=== PATIENT | male | born 1960 | race Caucasian/White ===

== ENCOUNTER 2017-03-31 11:04 | Day surgery (SDC) | payer OTHER ==
[~2017-03-31] VITALS: Ht 180.3 cm; Wt 81.7 kg
[2017-03-31] VITALS (9 sets, daily range): BP systolic 119–151; BP diastolic 75–101; PULSE 62–82; RESP 16–20; O2SAT 92–96
[~2017-03-31 11:04] MED LIST: ALBU8.5H2 INHALATION; Lactated Ringer's 1,000 ML IV ONE; METH10OR11 PO; ONDA8TAB7 PO
[2017-03-31] MEDS ORDERED: Lidocaine PF 2% 10 mL Inj MUC_MEMBRM ONE (11:10)
[2017-03-31] MEDS ORDERED: Lidocaine PF 2% 10 mL Inj MUC_MEMBRM PRN (11:10)
[2017-03-31] MEDS ORDERED: Lidocaine Topical 2% 30 mL Jelly TOPICAL ONE (11:10)
[2017-03-31] MEDS ORDERED: 0.9% Sodium Chloride 1,000 ML IV ONE (11:50)
[2017-03-31] MEDS ORDERED: fentaNYL-PF 50 mCg/mL 2 mL Inj ONE (12:04)
--- NOTE | 2017-03-31 13:26 | ENDO ---
[address] [address] ENDOSCOPY PROCEDURE PATIENT: SANJAY KRAFT : 1960 MR#: [id number] ADMIT: 03/31/2017 JOB ID: [id number] DATE OF SERVICE: 03/31/2017 PROCEDURE: Bronchoscopy. PERFORMED BY: Nica Ramirez M.D., Pulmonary Medicine. INDICATION: Left lung mass. DESCRIPTION OF PROCEDURE: Informed consent was obtained from the patient after risks and benefits of the procedure were discussed. The patient was asked to gargle lidocaine. Additional lidocaine was administered via atomizer. The scope was passed through the mouth. Epiglottis and trachea were both visualized. Additional lidocaine was administered here. Scope was passed past the cords into the trachea. Trachea and mariela were completely normal in appearance. A complete right-sided airway inspection was done and the airways were normal, patent without any mucosal abnormalities. On the left side, however, there was significant airway edema from the left upper lobe takeoff onward. The lingula, left upper lobe airways were patent but at the level of the left upper lobe airway takeoff there was a small endobronchial protrusion that could of been extrinsic compression from tumor. Further distally the lower lobe areas were much more compressed. The superior segment airway was completely compressed down to a slit-like appearance and the scope could not be passed into it. We then proceeded to do biopsies primarily in the left upper lobe superior segment airway orifice. At least 10-12 biopsies were taken in this area and then we did a few more biopsies, about four, in the left upper lobe airway takeoff in the region of endobronchial abnormality. There was a minimal amount of bleeding that subsided with topical epinephrine. MEDICATIONS: 1. Versed 4 mg. 2. Fentanyl 75 mcg. 3. Lidocaine 22 mL. 4. Epinephrine topical 8 cc. COMPLICATIONS: No significant complications. ESTIMATED BLOOD LOSS: Was about 5 cc. FINDINGS: 1. Left upper lobe and lingular airways with edema. 2. Small endobronchial lesion at the left upper lobe takeoff which could be tumor from extrinsic compression. 3. Complete occlusion of the superior segment of the left lower lobe airway with tumor and further significant narrowing with edema and extrinsic compression of the left lower lobe airways. SAMPLES: 10-12 biopsies of superior segment left lower lobe and about four biopsies of endobronchial lesion in the left upper lobe were taken. TESTING: Samples were also sent for pathology and I will request an urgent read on this. Postprocedure chest x-ray is pending.
--- NOTE | 2017-03-31 13:45 | DRSVH ---
PROCEDURE: X-RAY CHEST ONE VIEW, PORTABLE ([id number]) INDICATIONS: post bronch t/o pneumothorax TECHNIQUE: One view of the chest was acquired. COMPARISON: [facility], CR, XR CHEST 2VW, 03/15/2017, 12:08. FINDINGS: Surgical changes and devices: None. Lungs and pleura: No pleural effusions or pneumothorax. A left hilar mass is redemonstrated. Small clustered left infrahilar nodule also demonstrated as seen on the recent CT. Mediastinum: Mediastinal contours appear normal. Heart size is normal. Bones and chest wall: No suspicious bony lesions. Overlying soft tissues appear unremarkable. IMPRESSION: 1. No evidence of pneumothorax. 2. Left hilar mass redemonstrated as well as small clustered left infrahilar nodular opacities which may represent a post obstructive pneumonitis. Dictated by: Manny Tovar M.D. on 03/31/2017 at 13:41 Approved by: Manny Tovar M.D. on 03/31/2017 at 13:44
--- NOTE | 2017-04-04 14:23 | PATH ---
SURGICAL PATHOLOGY Attending Physician:Nica Ramirez MD CASE STATUS: Signed Out PATIENT NAME: SANJAY KRAFT PID: [id number] : 1960 DATE COLLECTED:03/31/2017 19:02 SPECIMEN: Lung Biopsy CLINICAL HISTORY: L LUNG MASS, SUSPECTED LUNG CANCER 1). LEFT LOWER LUNG LOBE BIOPSY FINAL DIAGNOSIS: 1.LEFT LOWER LUNG, MASS, BIOPSY: SMALL CELL NEUROENDOCRINE CARCINOMA. SEE COMMENT. ICD10 C34.90 NOTE: Dr. Quintana discussed results with Dr. Ramirez on 04/01/17 and on 04/04/17. As part of routine inspector quality assurance, Dr. Johanna Reeves also reviewed this case and agrees with the diagnosis. GROSS DESCRIPTION: The specimen is received in one formalin filled container labeled with the patient's name, sublabeled "left lobe" and consists of multiple portions of gonzales-blankenship tissue which aggregate to 0.6 x 0.5 x 0.2 CM. The specimen is entirely submitted in one cassette. 03/31/2017DC MICRO DESCRIPTION: Immunohistochemical stains were performed to characterize the cells of interest. All control stains showed appropriate reactivity. Results: ADILENE: Dot-like cytoplasmic positivity Synaptophysin: Positive Chromogranin: Positive CD56: Positive CD45: Negative Interpretation: The immunophenotype is consistent with small cell neuroendocrine carcinoma. This test was developed and its performance characteristics determined by [facility]. It has not been cleared or approved by the U. [place]. Food and Drug Administration. The FDA has determined that such clearance or approval is not necessary. This test is used for clinical purposes. It should not be regarded as investigational or for research. ICD-9 CODES: CPT CODES: 1: 07537, 33838, 41810, 48612, 24935, 75780 Electronically Signed Out Linda Quintana MD [facility] [address], [place] [address] Technical component performed at [facility], [address], [place], [address]
== END 2017-03-31 23:59 | disposition home or self-care (01) ==
LOC: END 11:04
PROVIDERS: ATTEND Internal Medicine Critical Care Medicine
DX: C7A.8 Other malignant neuroendocrine tumors (principal); F17.210 Nicotine dependence, cigarettes, uncomplicated; F11.99 Opioid use, unspecified with unspecified opioid-induced disorder; I10 Essential (primary) hypertension

== ENCOUNTER 2017-04-07 14:02 | Day surgery (SDC) | payer OTHER ==
[2017-04-07] VITALS (8 sets, daily range): BP systolic 126–171; BP diastolic 85–102; PULSE 60–81; RESP 10–17; O2SAT 96–100
[~2017-04-07] VITALS: Ht 180.3 cm; Wt 81.3 kg
[~2017-04-07 14:02] MED LIST changes: -Lactated Ringer's 1,000 ML IV ONE
[2017-04-07] MEDS ORDERED: Ketamine 10 mg/mL 20 mL Inj ONE (14:03)
[2017-04-07] MEDS ORDERED: Propofol 10,000 mCg/mL 20 mL Inj ONE (14:03)
[2017-04-07] MEDS ORDERED: Ondansetron 2 mg/mL 2 mL Inj ONE (14:03)
[2017-04-07] MEDS ORDERED: Dexamethasone 4 mg/mL Inj ONE (14:03)
[2017-04-07] MEDS ORDERED: MetoCLOpramide 5 mg/mL 2 mL Inj ONE (14:03)
[2017-04-07] MEDS ORDERED: CeFAZolin 2 Gm/50 mL D5W Duplex Bag IV ONE (14:41)
[2017-04-07] MEDS ORDERED: Lactated Ringer's 1,000 ML IV ONE (15:00)
[2017-04-07] MEDS ORDERED: METH40TA PO (15:23)
--- NOTE | 2017-04-07 17:16 | PCM.HPANE ---
Patient Data Surgeon Admitting Provider: Attending Provider:Liliana Ramirez MD Primary Care Physician:Hermes Mitchell PA-C Other Provider:Prasad Tripathi Anesthesia Reason for Visit Iv Access Ht/WT & BMI Height (Feet): 5 Height (Inches): 11 Weight (Kilograms): 81.3 Body Mass Index 25.00 Allergies Coded Allergies: Sulfa (Sulfonamide Antibiotics) (Verified Allergy, Unknown, 04/07/17) Past Anesthesia History Anesthesia History: Denies:: Abnormal Airway, Anesthesia Reactions, Difficult Intubation, Fam Anesthesia Reaction, Fam Malignant Hypertherm, Malignant Hyperthermia Diabetes History Hx Diabetes?: No MRSA MRSA: Yes Medications Hypertension Medication: No Home Meds Incl Beta Maxx: No Reported Medications Methadone HCl (Methadose)40 Mg Tablet.gno118 Mg PO DAILY 04/07/17 Ondansetron ODT (Zofran ODT)8 Mg Tablet8 Mg PO Q4H PRN For Nausea 03/29/17 Albuterol HFA (Proair HFA)8.5 Gm Hfa.aer.ad2 Puffs INHALATION Q4H #1 INHALER 03/29/17 Discontinued Reported Medications Methadone 10 Mg/1 Ml Oral.conc10 Mg PO 03/29/17 History History of ENT Problems?: Yes HEENT History: Denies:: Abnormal Airway Cataracts Difficult Intubation Dysphagia Glaucoma Hearing Problem Sinus Problem TMJ Denture Type: None Teeth Condition: Broken Teeth Hx of Heart Problems?: No Cardiovascular History: Denies:: AICD Abdominal Aortic Aneurism Atrial Fibrillation Cardiac Surgery Chest Pain Congestive Heart Failure Coronary Artery Disease Edema Heart Murmur Hypertension Irregular Heartbeat Pacemaker Peripheral Vascular Rheumatic Fever Thrombophlebitis Valvular Heart Disease Hx of Respiratory Problem?: No Respiratory History: Positive for:: Dyspnea Use of Inhalers / NEBS Denies:: Asthma COPD Chest Surgery Cough Emphysema Hemoptysis Oxygen Administration Pneumonia Pulmonary Embolism Tuberculosis Use of C-PAP Machine Other Resp Pertinent History: DIAGNOSED THREE DAYS AGO WITH LIVER AND LUNG CANCER Hx Neurologic Problems?: No Neurological History: Denies:: Alzheimer's Disease CVA Dementia Dizziness Headaches Multiple Sclerosis Parkinson's Disease Seizures TIA Hx of GI Problems?: Yes Hx of Problems?: No Genitourinary History: Denies:: HX of Hemodialysis Kidney Stones Urinary Tract Infection HX of Peritoneal Dialysis: No Male Hx: Denies:: Prostate Problems Scrotal Mass Testicular Surgery Skin History: Denies:: History Skin Disorders? Pressure Ulcers Hx Musculoskeletal Problems?: No Musculoskeletal History: Positive for:: Back Injury (LIFTING INJURY AT WORK) Degenerative Joint Denies:: Fibromyalgia Joint Replacement Musculoskeletal Trauma Myasthenia Gravis Osteoarthritis Rheumatoid Arthritis Systemic Lupus Hx of Psycho/Social Problems?: Yes Psycho Social History: Positive for:: Anxiety Hx Depression Denies:: Bipolar Disorder Suicide Attempt Hx Surgeries?: Yes (BACK AND NECK SURGERY) Hx Any Other Health Problems?: Yes Other History: Positive for:: Cancer (LUNG AND LIVER CANCER) Hospitalization Denies:: Endocrine Disease Thyroid Disease History Blood Transfusions: Positive for:: Accept Blood Products? Denies:: Blood Transfuse Reaction Blood Transfusions Hx Diabetes: No Hx Alcohol Use: NoHx Substance Use: Yes (MARIJUANA)Have You Smoked inLast 12 mo: YesApprox How Many Cigarettes/day: 1/2 PACK DAILY Stop/Bang Treated for Sleep Apnea?: No Do You Have a CPAP Machine?: No GERSON Risk Assessment: Low Risk, <3 Yes Risk Assessment Category Category 1A: Patient has history of documented sleep apnea, and HAS NOT received any narcotic, sedative or anesthesia administration during this stay. Category 1B: Patient has history of documented sleep apnea, and HAS received any narcotic , sedative or anesthesia administration during this stay Category 2: Patient has SUSPECTED Obstructive Sleep Apnea, and HAS received any narcotic , sedative or anesthesia administration during this stay. Category 3: Patient has SUSPECTED Obstructive Sleep Apnea and HAS NOT received narcotic, sedative or anesthesia administration during this stay. Category 4: Outpatient in Procedural Areas with known sleep apnea or who screen positive for High Risk via the STOP/BANG questionnaire. Exam Exam Vital Signs Vital Signs Date Time Temp Pulse Resp B/P Pulse Ox O2 Delivery O2 Flow Rate FiO2 04/07/17 15:00 36.3 81 16 150/95 96 Room Air General Appearance: Oriented X3 HEENT/AIRWAY: MP 2 Lungs: Normal Air Movement Heart: Regular Rate/Rhythm Meds/Labs/Diagnostics Admission Meds Current Medications Lactated Ringer's (Lr) 1,000 ml @ ud STK-MED ONCE IV Last administered on 04/07t 15:00; Start 04/07/17 at 15:00; Stop 04/07/17 at 15:21; Status DC Plan Impression Patient chart reviewed, patient interviewed and anesthestic plan with risks, benefits, and alternatives discussed, and informed consent obtained. ASA Physical Status: ASA3 Severe Disease Anesthetic Plan: GA Bene/Risks/Altern/Consents: Yes HP Complete Prior to Induction: Yes Jose Barrera MD Apr 07, 2017 17:16
[2017-04-07] MEDS ORDERED: Lactated Ringer's 500 ML IV PRN (17:17)
[2017-04-07] MEDS ORDERED: Lactated Ringer's 1,000 ML IV SCH (17:17)
[2017-04-07] MEDS ORDERED: fentaNYL-PF 50 mCg/mL 2 mL Inj IVPUSH PRN (17:20)
[2017-04-07] MEDS ORDERED: Labetalol 5 mg/mL 4 mL Inj IV PRN (17:20)
[2017-04-07] MEDS ORDERED: HYDROmorphone 1 mg/mL Inj IVPUSH PRN (17:20)
[2017-04-07] MEDS ORDERED: Phenylephrine 10,000 mCg/mL Inj IVPUSH PRN (17:20)
[2017-04-07] MEDS ORDERED: Ondansetron 2 mg/mL 2 mL Inj IVPUSH PRN (17:20)
[2017-04-07] MEDS ORDERED: MetoCLOpramide 5 mg/mL 2 mL Inj IVPUSH PRN (17:20)
[2017-04-07] MEDS ORDERED: EPHEDrine Sulfate 50 mg/mL Inj IVPUSH PRN (17:20)
[2017-04-07] MEDS ORDERED: Dexamethasone 4 mg/mL Inj IVPUSH PRN (17:20)
[2017-04-07] MEDS ORDERED: Bupivacaine-MPF 0.25% 30 mL Inj INFILTRATE ONE (18:14)
[2017-04-07] MEDS ORDERED: oxyCODONE-Acetamin 5-325 mg Tablet PO PRN (18:55)
--- NOTE | 2017-04-07 18:56 | PCM.DISURG ---
Surgical Discharge Instruction Date of Service Apr 07, 2017 Dates of Hospitalization Date of Hospital Admission Providers Admitting Physician: Primary Care Physician: Hermes Mitchell PA-C Attending Physician: Liliana Ramirez MD Diet Discharge Diet: No restrictions Activity Discharge Activity-General: Be up and about, Activity as pain allows Dressing and Incisional Care Hygiene: May shower, DO NOT soak incision under water, NO bathtub, hot tub or whirlpool Follow Up Plan Call your provider for: Fever, Chills, Wound redness, Increasing wound pain, Discharge @ incision, pus discharge Cortez Jarquin MD Apr 07, 2017 18:56
--- NOTE | 2017-04-07 19:00 | PCM.ANEP1 ---
Post Anesthesia PACU Phase 1 Assessment Vital Signs Vital Signs Date Time Temp Pulse Resp B/P Pulse Ox O2 Delivery O2 Flow Rate FiO2 04/07/17 18:55 60 11 130/87 100 Simple Mask 10 04/07/17 18:52 36.3 60 11 126/85 100 Simple Mask 10 04/07/17 15:00 36.3 81 16 150/95 96 Room Air Anesthetic Administered: GA Level of Alertness: Awake, talking Pain: No Nausea or Vomiting: No CV Function & Hydration Stable: Yes Airway Device: Lungs: Normal Air Movement PACU Phase 2 Assessment Patient Instructions Provided: N/A Jose Barrera MD Apr 07, 2017 19:00
--- NOTE | 2017-04-07 19:08 | OP ---
[address] [address] OPERATIVE REPORT PATIENT: SANJAY KRAFT : 1960 MR#: [id number] ADMIT: 04/07/2017 JOB ID: [id number] DATE OF SURGERY: 04/07/2017 PREOPERATIVE DIAGNOSIS(ES): Metastatic small cell lung cancer of the left lung. POSTOPERATIVE DIAGNOSIS(ES): Metastatic small cell lung cancer of the left lung. PROCEDURE PERFORMED: Left subclavian tunneled central venous catheter with subcutaneous port. SURGEON: Liliana Ramirez MD HEALTH CENTER ASSOCIATE: Cortez Jarquin MD COMPLICATIONS: None. CONDITION OF THE PATIENT: Stable. PROCEDURE PERFORMED: Intraoperative fluoroscopy and interpretation also. INDICATIONS: The patient is a 56-year-old gentleman who developed progressive cough and shortness of breath and the workup showed a left hilar mass with obvious metastasis in the liver. He was diagnosed after bronchoscopic biopsy to have metastatic small-cell cancer and we are here today to place a port for planned palliative chemotherapy next week under the guidance of Dr. Michel. PROCEDURE DETAILS: He was placed in supine position and underwent smooth induction of general anesthesia. The neck and chest were prepped and draped in the usual sterile fashion. Surgical time-out was undertaken using safety checklist, and all were in agreement. I began by placing him in the steep Trendelenburg position and cannulating the left subclavian vein using Seldinger technique. We then confirmed wire placement on the right side of the heart fluoroscopically and measured the required length of the catheter. I then made a pocket over the left pectoralis and sutured it to the port with 2-0 PDS x2. We then cut the catheter to the required length and attached it to the port. We then used the introducer dilator to go over the wire, and removed the dilator and the wire, and advanced the catheter over the introducer sheath and removed the introducer sheath. We found the catheter to be flushing and aspirating well, but final placement showed the tip to be too deep in the right atrium. At that point we withdrew the catheter by 3.5 cm, trimmed it, and reattached it to the port. We then aspirated it again and flushed it with heparin and checked placement fluoroscopically and tied down over sutures. We then closed the skin in layers of 4-0 Monocryl. Dermabond was applied as a dressing and he was taken to the recovery room in stable condition, where a chest x-ray was obtained.
--- NOTE | 2017-04-07 19:44 | DRSVH ---
PROCEDURE: X-RAY CHEST ONE VIEW, PORTABLE ([id number]) INDICATIONS: S/p LSCV port placement TECHNIQUE: One view of the chest was acquired. COMPARISON: [facility], CR, XR CHEST 1VW (PORTABLE), 03/31/2017, 12:56. [facility], CT, CT CHEST W CON, 03/18/2017, 15:03. FINDINGS: Surgical changes and devices: Port-A-Cath from left-sided approach extends into the distal SVC near the atrial caval junction. There is a left lung mass, contiguous with the left hilum, previously pre sent and better visualized by CT scanning performed 03/18/17. Lungs and pleura: No pleural effusions or pneumothorax. Lungs are clear. Mediastinum: Mediastinal contours appear normal. Heart size is normal. Bones and chest wall: No suspicious bony lesions. Overlying soft tissues appear unremarkable. IMPRESSION: Malignant appearing left hilar and perihilar lung mass, with extension of mass lesion co ntiguously into the mediastinum in this area with reference to the prior CT scanning from 03/18/17. N o pneumothorax after Port-A-Cath placement from left-sided approach, with tip in normal position. Dictated by: Cosme Hughes M.D. on 04/07/2017 at 19:41 Approved by: Cosme Hughes M.D. on 04/07/2017 at 19:43
== END 2017-04-07 23:59 | disposition home or self-care (01) ==
LOC: SAS 14:02
PROVIDERS: ATTEND Student in an Organized Health Care Education/Training Program
DX: C34.02 Malignant neoplasm of left main bronchus (principal); C78.7 Secondary malignant neoplasm of liver and intrahepatic bile duct; F41.9 Anxiety disorder, unspecified; R06.09 Other forms of dyspnea; F17.210 Nicotine dependence, cigarettes, uncomplicated; Z79.899 Other long term (current) drug therapy
CPT/HCPCS: 36561; 71010; 77001; C1788; C1892; C1894; J0690; J1100; J1642; J2405; J2704; J2765; J7120